=== PATIENT | female | born 1955 | race Caucasian/White ===

== ENCOUNTER 2024-05-03 10:57 | Inpatient (IN) | payer MEDICARE ==
[~2024-05-03] VITALS: Ht 162.6 cm; Wt 98.5 kg
[2024-05-03 12:28] LABS: BASOPHILS % (AUTO) 0.6 % (0.0-2.0); EOSINOPHILS # (AUTO) 0.1 K/uL (0.0-0.7); HEMATOCRIT 32 % (33-45); HEMOGLOBIN 10.6 g/dL (11.5-14.8); LYMPHOCYTES # (AUTO) 1.8 K/uL (0.8-4.8); LYMPHOCYTES % (AUTO) 27.4 % (20.0-44.0); MEAN CORPUSCULAR HEMOGLOBIN 28 PG (26.0-33.0); MEAN CORPUSCULAR HGB CONC 33 g/dl (31.0-36.0); MEAN CORPUSCULAR VOLUME 87 fL (82-100); MONOCYTES # (AUTO) 0.7 K/uL (0.1-1.30); NEUTROPHILS # (AUTO) 3.8 K/uL (1.8-8.9); PLATELET COUNT (AUTO) 365 K/uL (150-450); RED BLOOD CELL COUNT(AUTO) 3.73 MIL/uL (4.0-5.2); RED CELL DISTRIBUTION WIDTH 14.1 % (11.5-15.0); WHITE BLOOD COUNT (AUTO) 6.4 K/uL (4.3-11.0)
[2024-05-03 12:35] LABS: ALANINE AMINOTRANSFERASE 16 U/L (12-78); ALBUMIN 3.2 g/dL (3.4-5.0); ALKALINE PHOSPHATASE 80 U/L (46-116); ASPARTATE AMINOTRANSFERASE 16 U/L (15-37); BILIRUBIN,DIRECT 0.1 mg/dL (0.0-0.2); BILIRUBIN,TOTAL 0.3 mg/dL (0.2-1.0); CARBON DIOXIDE 29 mmol/L (21-32); CHLORIDE 104 mmol/L (98-107); CREATININE 1.1 mg/dL (0.6-1.3); GLUCOSE 129 mg/dL (74-106); LIPASE 22 U/L (16-77); SODIUM SERUM 139 mmol/L (136-145); TOTAL PROTEIN, SERUM 8.3 g/dL (6.4-8.2); UREA NITROGEN, BLOOD 25 mg/dL (7-18)
[2024-05-03 12:39] LABS: LACTIC ACID 1.2 mmol/L (0.4-2.0)
[2024-05-03] MEDS ORDERED: LISI40TA13 PO (15:43)
[2024-05-03] MEDS ORDERED: AZEL137S7 NS (15:43)
[2024-05-03] MEDS ORDERED: ALBU8.5H8 IH (15:43)
[2024-05-03] MEDS ORDERED: FERR325T30 PO (15:43)
[2024-05-03] MEDS ORDERED: TRAM50TA2 PO (15:43)
[2024-05-03] MEDS ORDERED: LORA10TA7 PO (15:43)
[2024-05-03] MEDS ORDERED: MUPI22OI7 TP (15:43)
[2024-05-03] MEDS ORDERED: OXYB5TAB16 PO (15:43)
[2024-05-03] MEDS ORDERED: LEVO25TA9 PO (15:43)
[2024-05-03] MEDS ORDERED: FURO20TA4 PO (15:43)
[2024-05-03 16:00] VITALS: BP 117/59; TEMP 97.5; O2SAT 95
[2024-05-03] MEDS ORDERED: LORATADINE 10 MG TABLET PO PRN (16:30)
[2024-05-03] MEDS ORDERED: ONDANSETRON HCL/PF 4 MG/2 ML VIAL IVP PRN (16:30)
[2024-05-03] MEDS ORDERED: IV NS 0.9% 1,000 ML IV PRN (16:30)
[2024-05-03] MEDS ORDERED: MAG HYDROX/AL HYDROX/SIMETH 30 ML UDC PO PRN (16:30)
[2024-05-03] MEDS ORDERED: Z GUARD REMEDY 4 OZ OINT TP PRN (16:30)
[2024-05-03] MEDS ORDERED: MAGNESIUM HYDROXIDE 30 ML UDC PO PRN (16:30)
[2024-05-03] MEDS ORDERED: TRAMADOL HCL 50 MG TABLET PO PRN (16:30)
[2024-05-03 17:00] VITALS: BP 117/59; TEMP 97.5; O2SAT 95
[2024-05-03] MEDS ORDERED: ALBUTEROL FS 2.5 MG/0.5 ML VIAL.NEB NEB PRN (17:00)
[2024-05-03] MEDS: OXYBUTYNIN CHLORIDE 5 MG TABLET PO SCH (17:38)
[2024-05-03] MEDS: AZELASTINE NASAL SPRAY 30 ML BOTTLE NS SCH (17:38)
[2024-05-03 20:50] VITALS: BP 118/58; TEMP 98.4; O2SAT 94
[2024-05-03 22:52] VITALS: BP 118/58; TEMP 98.4; O2SAT 94
[2024-05-04] MEDS: LEVOTHYROXINE SODIUM 25 MCG TABLET PO SCH (07:48)
[2024-05-04 08:10] VITALS: BP 117/52; TEMP 97.9; O2SAT 96
[2024-05-04] MEDS: FERROUS SULFATE (325 MG) 325 MG/TAB TABLET PO SCH (08:30)
[2024-05-04] MEDS: LISINOPRIL (20MG) 20 MG TABLET PO SCH (08:31)
[2024-05-04 12:00] VITALS: BP 100/50; TEMP 98.1; O2SAT 98
[2024-05-04 16:32] LABS: BASOPHILS # (AUTO) 0.1 K/uL (0.0-0.2); BASOPHILS % (AUTO) 0.7 % (0.0-2.0); EOSINOPHILS # (AUTO) 0.2 K/uL (0.0-0.7); HEMATOCRIT 32 % (33-45); HEMOGLOBIN 10.7 g/dL (11.5-14.8); LYMPHOCYTES # (AUTO) 2.2 K/uL (0.8-4.8); LYMPHOCYTES % (AUTO) 29.9 % (20.0-44.0); MEAN CORPUSCULAR HEMOGLOBIN 28 PG (26.0-33.0); MEAN CORPUSCULAR HGB CONC 33 g/dl (31.0-36.0); MEAN CORPUSCULAR VOLUME 85 fL (82-100); MONOCYTES # (AUTO) 0.7 K/uL (0.1-1.30); MONOCYTES % (AUTO) 9.7 % (2.0-12.0); NEUTROPHILS # (AUTO) 4.2 K/uL (1.8-8.9); NEUTROPHILS % (AUTO) 56.7 % (43.0-81.0); PLATELET COUNT (AUTO) 354 K/uL (150-450); RED BLOOD CELL COUNT(AUTO) 3.79 MIL/uL (4.0-5.2); RED CELL DISTRIBUTION WIDTH 14.4 % (11.5-15.0); WHITE BLOOD COUNT (AUTO) 7.4 K/uL (4.3-11.0)
[2024-05-04 16:49] LABS: CREATININE 1.3 mg/dL (0.6-1.3); MAGNESIUM 2.2 mg/dL (1.8-2.4); PHOSPHORUS 4.5 mg/dL (2.5-4.9); POTASSIUM 4.3 mmol/L (3.5-5.1)
[2024-05-04 16:58] VITALS: BP_SYST 130; BP_SYST 97; BP_DIAS 56; BP_DIAS 60; TEMP 97.5; TEMP 98; O2SAT 99
[2024-05-04 20:00] VITALS: BP_SYST 85; BP_SYST 95; BP_DIAS 40; BP_DIAS 51; TEMP 97.9; O2SAT 97
[2024-05-05 07:00] VITALS: BP 105/76; TEMP 97.2; O2SAT 98
[2024-05-05] MEDS: ACETAMINOPHEN 325 MG TABLET PO PRN (15:33)
[2024-05-05 16:00] VITALS: BP 99/48; TEMP 97.9; O2SAT 98
[2024-05-05 20:00] VITALS: BP 115/61; TEMP 97.9; O2SAT 96
[2024-05-06 07:00] VITALS: BP 103/51; TEMP 98.1; O2SAT 98
[2024-05-06 08:52] VITALS: BP 103/51
== END 2024-05-06 14:00 | DRG 641 ==
LOC: ER 11:05 → MED 15:58
PROVIDERS: ADMIT Internal Medicine; ATTEND Internal Medicine
DX: E86.0 Dehydration (principal); E44.0 Moderate protein-calorie malnutrition; N17.9 Acute kidney failure, unspecified; L97.929 Non-pressure chronic ulcer of unspecified part of left lower leg with unspecified severity; R62.7 Adult failure to thrive; E11.9 Type 2 diabetes mellitus without complications; Z86.73 Personal history of transient ischemic attack (TIA), and cerebral infarction without residual deficits; F03.90 Unspecified dementia, unspecified severity, without behavioral disturbance, psychotic disturbance, mood disturbance, and anxiety; I12.9 Hypertensive chronic kidney disease with stage 1 through stage 4 chronic kidney disease, or unspecified chronic kidney disease; M89.8X9 Other specified disorders of bone, unspecified site; N18.9 Chronic kidney disease, unspecified; E11.22 Type 2 diabetes mellitus with diabetic chronic kidney disease; E88.09 Other disorders of plasma-protein metabolism, not elsewhere classified; E03.9 Hypothyroidism, unspecified; Z88.5 Allergy status to narcotic agent; Z88.8 Allergy status to other drugs, medicaments and biological substances; D50.9 Iron deficiency anemia, unspecified; Z79.51 Long term (current) use of inhaled steroids; Z79.890 Hormone replacement therapy; Z79.899 Other long term (current) drug therapy
CPT/HCPCS: 36415; 80048-TC; 80076-TC; 82962-TC; 83605-TC; 83690-TC; 83735-TC; 84100-TC; 84484-TC; 85025-TC; 97110-TC; 97116-TC; 97530-TC; 97535-TC; G0378